=== PATIENT | male | born 1975 | race Caucasian/White ===

== ENCOUNTER 2020-09-02 00:50 | Emergency (ER) | payer MEDICAID, SELFPAY ==
--- NOTE | ~2020-09-02 | XR_ITS ---
EXAMINATION: XR CHEST CLINICAL INFORMATION: Asthma. Dyspnea. COMPARISON: 08/22/2019 TECHNIQUE: Frontal view of the chest was obtained. FINDINGS: The lungs are well expanded. There is no focal consolidation, edema, or effusion. No pneumothorax. The cardiomediastinal silhouette is within normal limits. No acute osseous abnormality. XR/XR chest 1V IMPRESSION: No acute pulmonary finding.
--- NOTE | ~2020-09-02 | XR_ITS ---
EXAMINATION: XR LUMBOSACRAL SPINE CLINICAL INFORMATION: Fall. Lumbar pain. COMPARISON: 11/20/2018 TECHNIQUE: Three views of the lumbosacral spine. FINDINGS: No fracture or subluxation. Vertebral body height and alignment is maintained. Mild disc space narrowing of L4-L5. Small endplate osteophytes at the lower lumbar spine with mild facet arthropathy. The sacroiliac joints are symmetric. The visualized sacrum is intact. The bowel gas pattern is nonobstructive with moderate colonic stool burden. XR/XR lumbar spine 2-3V IMPRESSION: No acute abnormality. Mild multilevel degenerative changes of the spine. Prominent stool in the colon.
[2020-09-02 00:52] VITALS: BP 155/62; PULSE 84; RESP 20; TEMP 36.5; O2SAT 92; BMI 39.0
--- NOTE | 2020-09-02 01:11 | ECG_ITS ---
Test Reason : SOB Blood Pressure : / mmHG Vent. Rate : 094 BPM Atrial Rate : 094 BPM P-R Int : 166 ms QRS Dur : 098 ms QT Int : 362 ms P-R-T Axes : 076 070 049 degrees QTc Int : 452 ms Normal sinus rhythm Normal ECG When compared with ECG of 20-JAN-2019 02:45, No significant change was found Referred By: Caprice Brown Electronically Signed By:PAOLA ARREDONDO
--- NOTE | 2020-09-02 01:13 | ED.GENADULT ---
HPI - General Adult General Chief complaint: General Medical Stated complaint: Back pain/Leg swelling Time Seen by Provider: 09/02/20 01:04 Source: patient Mode of arrival: ambulatory Limitations: no limitations History of Present Illness HPI narrative: Patient comes emergency room complaining of lumbar and right-sided back pain. Patient states that 2 days ago he was walking and slipped on a wet floor. Patient was able to get up but has been hurting since then. Patient states the pain is localized, nonradiating. Patient denies urinary/fecal incontinence/retention. No fever or chills. Patient also complaining of lower extremity edema, states it has been ongoing for couple of months. Patient denies taking any medications for lower extremity edema. Also, patient complaining of wheezing. Patient states he ran out of albuterol 2 days ago. Patient is known to have asthma, denies history of COPD Related Data Previous Rx's Medication Instructions Recorded acetaminophen [Tylenol 8 Hour] 650 mg PO Q8H PRN #10 tab 09/02/20 albuterol sulfate 2 puff INHALATION Q4-6H PRN #8.5 g 09/02/20 cyclobenzaprine 10 mg PO TID PRN #10 tab 09/02/20 prednisone 50 mg PO DAILY #5 tab 09/02/20 Allergies Allergy/AdvReac Type Severity Reaction Status Date / Time No Known Allergies Allergy Verified 09/02/20 00:58 Review of Systems Review of Systems: Constitutional : No Weight loss, No Fever, No Chills, No Night Sweats, No Fatigue, No Malaise ENT/Mouth : No Hearing loss, No Ear Pain, No Nasal Congestion, No Sinus Pain, No Hoarseness, No sore throat, No Rhinorrhea, No Swallowing Difficulty Eyes: No Eye Pain, No Swelling, No Redness, No Foreign Body, No Discharge, No Vision Changes Cardiovascular : No Chest Pain, No SOB, No Dyspnea on Exertion, No Orthopnea, complaining of lower extremity edema No Palpitations Respiratory : No Cough, No Sputum, complaining of Wheezing, No Smoke Exposure Gastrointestinal : No Nausea, No Vomiting, No Diarrhea, No Constipation, No abdominal Pain, No Hematochezia, No Melena Genitourinary : no irregular bleeding, No Dysuria, No Urinary Frequency, No Hematuria, No Urinary Incontinence, No Urgency, No Flank Pain, No Urinary Flow Changes, No Hesitancy Musculoskeletal : Complaining of back pain, lumbar and right lower back. No Joint Swelling Skin : No Skin Lesions, No rash Neuro : No Weakness, No Numbness, No Paresthesias, No Loss of Consciousness, No Dizziness, No Headache Psych : No Anxiety/Panic, No Depression, No SI/HI/AH/VH, No Social Issues, Heme/Lymph: No Bruising, No Bleeding,No Lymphadenopathy Endocrine : No Polyuria, No Polydipsia, No Temperature Intolerance [facility] Past Medical History Medical History Ambulates with cane Arthritis Asthma Depression Social History Social History Alcohol intake: unknown Patient Tobacco Use Status: Current everyday Tobacco user Smoked in Last 30 Days: Yes Use of substances other than those prescribed or required for medical reasons: Yes Substance Use Type: Crack/Cocaine and Heroin Substance Use Frequency: Chronic Longstanding Last Used Substance: Just Prior to Admission Any prior treatment program specific to substance use: Yes Advance Directives: No Advance Directives Information Provided: No Physical Exam Vital Signs: Vital Signs: Last Vital Signs Temp 97.7 F 09/02/20 00:52 Pulse 97 09/02/20 04:32 Resp 10 L 09/02/20 04:32 BP 145/85 H 09/02/20 04:32 Pulse Ox 94 09/02/20 04:32 Body Mass Index 39.0 Appearance: Alert. Oriented X3. No acute distress. Eyes: Pupils equal, round and reactive to light. ENT: Pharynx normal. Neck: Normal inspection. Neck supple. No lymph nodes noted. No crepitus CVS: Normal heart rate and rhythm. Pulses normal. Normal S1 and S2 Respiratory: No respiratory distress. Bilateral wheezing, no rales Abdomen: Soft and nontender. No rigidity. No distention. Back: Pain to palpation over lumbar area and lower right-sided back Skin: Skin warm and dry. Normal skin color. Normal skin turgor. Extremities: Bilateral lower extremity edema, +2. No Lacerations. No Rash Neuro: Oriented X 3. No motor deficit. No sensory deficit. Moving all extermities. No slurred speech. Course Course Course Narrative: It was noted that patient's oxygen saturation dropped to 88% on room air. Patient was given a nebulization treatment. Patient received 2 hour long albuterol treatment. Solu-Medrol, magnesium. Patient is still wheezing. Oxygen saturation is 96% on room air. I discussed with the patient that given that he still wheezing quite a bit, I recommend admission. Patient states that he feels well and does not want to stay in the hospital. Patient's oxygen saturation remained between 94 and 95% while walking. Patient denies chest pain or shortness of breath. Patient would like to home. Medical Decision Making Lab Data Result diagrams: 09/02/20 01:53 09/02/20 01:53 Labs: Lab Results 09/02/20 09/02/20 09/02/20 Range/Units 01:53 01:53 01:53 WBC 8.3 (4.8-10.8) X10*3/uL RBC 4.97 (4.60-5.80) X10*6/uL Hgb 13.9 L (14.0-18.0) g/dl Hct 42.4 (42-52) % MCV 85.3 (80-98) fL MCH 28.0 (27.0-33.0) pg MCHC 32.8 (31.0-36.0) g/dl RDW 12.9 (11.0-16.0) % Plt Count 254 (160-400) X10*3/uL MPV 10.3 (9.4-12.4) fL Immature Gran % (Auto) 0.1 (0.0-0.4) % Neut % (Auto) 59.3 (45-73) % Lymph % (Auto) 22.6 (20-40) % [place] % (Auto) 7.7 (2-11) % Eos % (Auto) 9.6 H (0-4) % Baso % (Auto) 0.7 (0-2) % Lymph # (Auto) 1.9 (1.2-4.9) X10*3/uL [place] # (Auto) 0.6 (0.1-1.2) X10*3/uL Eos # (Auto) 0.8 H (0.0-0.4) X10*3/uL Baso # (Auto) 0.1 (0.0-0.2) X10*3/uL Abs Immat Gran (auto) 0.01 (0.00-0.03) X10*3/uL Absolute Neuts (auto) 4.9 (2.0-8.3) X10*3/uL Absolute Nucleated RBC 0.000 (0.0-0.012) X10*3/uL Nucleated RBC % (auto) 0.0 (0.0-0.2) /100WBC Sodium 141 (135-145) mmol/L Potassium 3.5 (3.3-5.1) mmol/L Chloride 104 (96-108) mmol/L Carbon Dioxide 28 (22-29) mmol/L Anion Gap 13 (12-20) BUN 16 (9-16) mg/dL Creatinine 0.86 (0.5-1.4) mg/dL Estim Creat Clear Calc 99.5 Estimated GFR > 60 Random Glucose 98 (60-115) mg/dL Calcium 9.0 (8.4-10.2) mg/dL Total Bilirubin 0.2 (0.0-1.0) mg/dL Direct Bilirubin < 0.2 (0.0-0.5) mg/dL AST 27 (5-37) U/L ALT 26 (0-40) U/L Alkaline Phosphatase 91 (39-117) U/L B-Natriuretic Peptide < 10 (<100) pg/mL Total Protein 6.9 (6.5-8.0) g/dL Albumin 4.0 (3.5-5.0) g/dL Imaging Data Lumbar spine x-ray: Radiologist's impression: No fracture or subluxation. Vertebral body height and alignment is maintained. Mild disc space narrowing of L4-L5. Small endplate osteophytes at the lower lumbar spine with mild facet arthropathy. The sacroiliac joints are symmetric. The visualized sacrum is intact. The bowel gas pattern is nonobstructive with moderate colonic stool burden. XR/XR lumbar spine 2-3V IMPRESSION: No acute abnormality. Mild multilevel degenerative changes of the spine. Prominent stool in the colon. Chest x-ray: Radiologist's impression: The lungs are well expanded. There is no focal consolidation, edema, or effusion. No pneumothorax. The cardiomediastinal silhouette is within normal limits. No acute osseous abnormality. XR/XR chest 1V IMPRESSION: No acute pulmonary finding. ECG Data Attestation: I personally reviewed and interpreted this ECG as follows: (Sinus rhythm, heart rate 94, no ST segment depression or elevation, nonspecific T-wave inversion in lead 3, QTC 452) Critical Care Time Critical Care Time Total Critical Care Time: 60 Discharge Plan Discharge Clinical Impression: Back pain, lumbosacral, Bilateral lower extremity edema Asthma Qualifiers: Asthma severity: unspecified severity Asthma persistence: unspecified Asthma complication type: unspecified Qualified Code(s): J45.909 - Unspecified asthma, uncomplicated Patient Disposition: Home, Self-Care Instructions: Asthma (ED), Acute Low Back Pain (ED) Additional Instructions: Please follow-up with your primary care physician tomorrow. If you have any worsening or new symptoms, please return to the emergency room or call 911 Prescriptions: New albuterol sulfate 90 mcg/actuation HFA aerosol inhaler 2 puff inhalation Q4-6H PRN (Reason: shortness of breath or wheezing) Qty: 8.5 RF: 0 prednisone 50 mg tablet 50 mg PO DAILY Qty: 5 RF: 0 acetaminophen [Tylenol 8 Hour] 650 mg tablet extended release 650 mg PO Q8H PRN (Reason: pain) Qty: 10 RF: 0 cyclobenzaprine 10 mg tablet 10 mg PO TID PRN (Reason: muscle spasm) Qty: 10 RF: 0
[2020-09-02 01:30] VITALS: PULSE 93; O2SAT 93
[2020-09-02] MEDS: Albuterol Sulfate (0.083%) 2.5 MG/3 ML VIAL.NEB 10 MG INHALE ×2 (01:34→02:54)
[2020-09-02] MEDS: methylPREDNISolone Sod Succ 125 MG/2 ML VIAL IVPUSH (01:59)
[2020-09-02 02:00] VITALS: BP 133/76; PULSE 86; RESP 15; O2SAT 98
[2020-09-02 02:03] LABS: Basophils Absolute Auto 0.1 X10*3/uL (0.0-0.2); Basophils Percent Auto 0.7 % (0-2); Eosinophils Absolute Auto 0.8 X10*3/uL (0.0-0.4); Eosinophils Percent Auto 9.6 % (0-4); Hematocrit 42.4 % (42-52); Hemoglobin 13.9 g/dl (14.0-18.0); Imm Gran Abs Auto 0.01 X10*3/uL (0.00-0.03); Imm Gran Pct Auto 0.1 % (0.0-0.4); Lymphocytes Absolute Auto 1.9 X10*3/uL (1.2-4.9); Lymphocytes Percent Auto 22.6 % (20-40); MANUAL DIFF FLAG NO; Mean Corpuscular HGB Conc 32.8 g/dl (31.0-36.0); Mean Corpuscular Volume 85.3 fL (80-98); Mean Platelet Volume 10.3 fL (9.4-12.4); Monocytes Absolute Auto 0.6 X10*3/uL (0.1-1.2); Monocytes Percent Auto 7.7 % (2-11); Neutrophils Absolute Auto 4.9 X10*3/uL (2.0-8.3); Neutrophils Percent Auto 59.3 % (45-73); Platelet Count 254 X10*3/uL (160-400); Red Blood Count 4.97 X10*6/uL (4.60-5.80); Red Cell Distribution Width 12.9 % (11.0-16.0); White Blood Count 8.3 X10*3/uL (4.8-10.8)
[2020-09-02] MEDS: Magnesium Sulfate/H2O 2 GM/50 ML PIGGYBACK IV (02:13)
[2020-09-02 02:33] LABS: Alanine Aminotransferase 26 U/L (0-40); Alkaline Phosphatase 91 U/L (39-117); Anion Gap 13 (12-20); Aspartate Amino Transferase 27 U/L (5-37); Bilirubin Direct < 0.2 mg/dL (0.0-0.5); Bilirubin Total 0.2 mg/dL (0.0-1.0); Blood Urea Nitrogen 16 mg/dL (9-16); Carbon Dioxide 28 mmol/L (22-29); Chloride 104 mmol/L (96-108); Creatinine Clr Calc Pharmacy 99.5; Estimated Glomerular Filt Rate > 60; Glucose Random 98 mg/dL (60-115); Potassium 3.5 mmol/L (3.3-5.1); Sodium 141 mmol/L (135-145); Total Protein 6.9 g/dL (6.5-8.0)
[2020-09-02 02:36] LABS: B Type Natriuretic Peptide < 10 pg/mL (<100)
[2020-09-02 02:54] VITALS: PULSE 72; O2SAT 92
[2020-09-02 04:00] VITALS: PULSE 90; RESP 14; O2SAT 96
[2020-09-02 04:32] VITALS: BP 145/85; PULSE 97; RESP 10; O2SAT 94
== END 2020-09-02 05:06 | disposition home or self-care (01) ==
PROVIDERS: Emergency Provider Emergency Medicine
DX: R60.0 Localized edema (principal); J45.909 Unspecified asthma, uncomplicated; M54.5 Low back pain; F11.10 Opioid abuse, uncomplicated; Z79.899 Other long term (current) drug therapy; F14.90 Cocaine use, unspecified, uncomplicated; F17.200 Nicotine dependence, unspecified, uncomplicated; Z71.6 Tobacco abuse counseling
CPT/HCPCS: 36415; 71045; 72100; 80048; 80076; 83880; 85025; 93005; 94640; 94644; 94645; 99284; 99291; J2930; J3475

== ENCOUNTER 2020-10-05 06:44 | Inpatient (IN) | payer MEDICAID, SELFPAY ==
[2020-10-05] VITALS (11 sets, daily range): BP systolic 126–165; BP diastolic 63–79; PULSE 85–118; RESP 16–19; TEMP 37–37.2; O2SAT 93–96; BMI 28.8
--- NOTE | ~2020-10-05 | XR_ITS ---
EXAMINATION: XR CHEST CLINICAL INFORMATION: Shortness of breath COMPARISON: 09/02/2020 TECHNIQUE: Frontal view of the chest was obtained. FINDINGS: Subtle infiltration right suprahilar location. No significant abnormality is otherwise noted involving the heart, lungs, mediastinum, bony thorax or soft tissues. XR/XR chest 1V IMPRESSION: Early infiltration right upper lobe. No parapneumonic effusion.
--- NOTE | ~2020-10-05 | CT_ITS ---
EXAMINATION: CT ANGIOGRAM OF THE CHEST WITH AND WITHOUT CONTRAST (CT PULMONARY ANGIOGRAM FOR PE) CLINICAL INFORMATION: Reason for Exam shortness of breath, hypoxia, rule out PE, pneumonia COMPARISON: Chest x-ray from earlier the same day TECHNIQUE: Prior to contrast administration, noncontrast localization images were obtained. Subsequently, multidetector volumetric imaging was performed from the thoracic inlet to below the diaphragms following the administration of 69 mL Omnipaque 350 intravenous contrast. No contrast reaction reported Sagittal, coronal, and MIP oblique sagittal reformatted images were obtained on the CT workstation, uploaded to PACS, and reviewed. This CT examination was performed using dose optimization techniques as appropriate, variously including the following: *Automated exposure control *Adjustment of mA and/or kV according to patient size (this includes techniques or standardized protocols for targeted exams where dose is matched to indication/reason for exam; i.e. extremities or head) *Use of iterative reconstruction technique Total exam dose-length product 397 mGy-cm FINDINGS: QUALITY OF STUDY/CONTRAST BOLUS: Satisfactory. PULMONARY ARTERIES: No central or segmental pulmonary emboli. THORACIC AORTA: No aneurysm or dissection. LUNG: There is evidence of mild emphysema. There are scattered areas of mild bronchial wall thickening. The lungs are otherwise clear. PLEURA: No pleural effusion or pneumothorax. MEDIASTINUM: Normal heart size. No pericardial effusion. There is shotty mediastinal and bilateral hilar lymphadenopathy. No enlarged hilar or mediastinal lymphadenopathy. No evidence of septal bowing or right heart strain. CHEST WALL/AXILLA: No axillary or internal mammary lymphadenopathy. OSSEOUS STRUCTURES: No acute or suspicious osseous abnormality. UPPER ABDOMEN: Unremarkable. No reflux of contrast into the hepatic veins to suggest elevated right heart pressures. CT/CT angio chest PE protocol IMPRESSION: No evidence of pulmonary embolism. Mild emphysema. Scattered areas of mild bronchial wall thickening. No evidence of pneumonia seen. VTE: negative
--- NOTE | 2020-10-05 06:50 | ECG_ITS ---
Test Reason : SOB Blood Pressure : / mmHG Vent. Rate : 098 BPM Atrial Rate : 098 BPM P-R Int : 156 ms QRS Dur : 098 ms QT Int : 352 ms P-R-T Axes : 069 066 046 degrees QTc Int : 449 ms Normal sinus rhythm Normal ECG No previous ECGs available Referred By: Mary Lou Flor Electronically Signed By:CUONG CASTELLON MD
[2020-10-05] MEDS: Albuterol Sulfate (0.083%) 2.5 MG/3 ML VIAL.NEB 10 MG INHALE (07:01)
[2020-10-05] MEDS: methylPREDNISolone Sod Succ 125 MG/2 ML VIAL IVPUSH (07:01)
[2020-10-05] MEDS: Magnesium Sulfate/H2O 2 GM/50 ML PIGGYBACK IV (07:01)
[2020-10-05 07:24] LABS: MANUAL DIFF FLAG NO
[2020-10-05 07:25] LABS: Basophils Absolute Auto 0.1 X10*3/uL (0.0-0.2); Basophils Percent Auto 0.7 % (0-2); Eosinophils Absolute Auto 0.6 X10*3/uL (0.0-0.4); Eosinophils Percent Auto 5.8 % (0-4); Hematocrit 41.9 % (42-52); Hemoglobin 13.5 g/dl (14.0-18.0); Imm Gran Abs Auto 0.01 X10*3/uL (0.00-0.03); Imm Gran Pct Auto 0.1 % (0.0-0.4); Lymphocytes Absolute Auto 1.9 X10*3/uL (1.2-4.9); Lymphocytes Percent Auto 18.3 % (20-40); Mean Corpuscular HGB Conc 32.2 g/dl (31.0-36.0); Mean Corpuscular Hemoglobin 27.4 pg (27.0-33.0); Mean Corpuscular Volume 85.2 fL (80-98); Monocytes Absolute Auto 0.9 X10*3/uL (0.1-1.2); Monocytes Percent Auto 8.2 % (2-11); Neutrophils Percent Auto 66.9 % (45-73); Platelet Count 251 X10*3/uL (160-400); Red Blood Count 4.92 X10*6/uL (4.60-5.80); Red Cell Distribution Width 13.5 % (11.0-16.0); White Blood Count 10.5 X10*3/uL (4.8-10.8)
[2020-10-05 08:01] LABS: Alanine Aminotransferase 14 U/L (0-40); Albumin Level 3.9 g/dL (3.5-5.0); Alkaline Phosphatase 90 U/L (39-117); Anion Gap 10 (12-20); Aspartate Amino Transferase 16 U/L (5-37); Bilirubin Total 0.4 mg/dL (0.0-1.0); Blood Urea Nitrogen 17 mg/dL (9-16); Calcium 8.9 mg/dL (8.4-10.2); Carbon Dioxide 28 mmol/L (22-29); Chloride 107 mmol/L (96-108); Creatinine Clr Calc Pharmacy 119.6; Estimated Glomerular Filt Rate > 60; Glucose Random 111 mg/dL (60-115); Potassium 3.6 mmol/L (3.3-5.1); Sodium 141 mmol/L (135-145); Total Protein 6.4 g/dL (6.5-8.0)
--- NOTE | 2020-10-05 09:06 | ED.ASTHMA ---
HPI - Asthma General Chief Complaint: Asthma Stated Complaint: asthma Time Seen by Provider: 10/05/20 06:50 Source: patient Mode of arrival: ambulatory Limitations: no limitations History of Present Illness HPI Narrative: 45-year-old male who presents emergency department for evaluation of shortness of breath, productive cough and asthma exacerbation. The patient states that he has been short of breath since yesterday. He states that he has also had a cough which is productive of green, thick sputum. He had occasional chills but no fever. He states that he has been feeling weak and fatigued. The patient does have a history of asthma and he states that he was using his albuterol inhaler every 2 hours with only minimal relief of his shortness of breath. The patient does have a history of heroin use disorder. He states that he snorts heroin multiple times a day and uses 10 bags of heroin per day. Patient states that he was intubated in 2006 for an asthma exacerbation. He denied headache, nausea, vomiting, chest pain, abdominal pain, change in his bowel movements. On presentation, the patient appeared to be in moderate respiratory distress, he was tachycardic with a pulse rate of 118, he was hypoxic with an O2 saturation of 88% on room air and this improved to 96% on 4 L. Related Data Previous Rx's Medication Instructions Recorded acetaminophen [Tylenol 8 Hour] 650 mg PO Q8H PRN #10 tab 09/02/20 albuterol sulfate 2 puff INHALATION Q4-6H PRN #8.5 g 09/02/20 cyclobenzaprine 10 mg PO TID PRN #10 tab 09/02/20 prednisone 50 mg PO DAILY #5 tab 09/02/20 Allergies Allergy/AdvReac Type Severity Reaction Status Date / Time No Known Allergies Allergy Verified 09/02/20 00:58 Review of Systems Review of Systems: Yes all other systems are reviewed and are negative [facility] Past Medical History [facility] Narrative: past medical history: Asthma, intubated in 2006, peripheral edema, depression, arthritis. Social history: The patient smokes 1 pack of cigarettes per day times 34 years, denies alcohol use. He states that he uses intranasal heroin multiple times a day, he uses 10 bags a day, he states the last use last night. Medical History Ambulates with cane Arthritis Asthma Depression Social History Social History Alcohol intake: unknown Patient Tobacco Use Status: Current everyday Tobacco user Substance Use Type: Crack/Cocaine and Heroin Advance Directives: No Advance Directives Information Provided: No Physical Exam Vital Signs: Vital Signs: Last Vital Signs Pulse 85 10/05/20 10:27 Resp 18 10/05/20 08:00 BP 126/64 10/05/20 08:00 Pulse Ox 96 10/05/20 08:00 Oxygen Flow Rate 4 10/05/20 06:52 Body Mass Index 28.8 Const: General: cooperative and in distress ( Moderate respiratory distress) Orientation/consciousness: oriented to person and oriented to place Limitations: no limitations HENMT: Head: Yes normal to inspection, Yes normocephalic and Yes atraumatic Ears: external ears normal General nose exam: Normal external nose present Face and sinus: Yes normal facial exam Mouth: Normal oral and palatal mucosa present Throat: Yes posterior oropharynx normal Eyes: Periorbital: periorbital findings normal Eyelids: Yes eyelids normal Conjunctivae: conjunctivae normal Sclerae: sclerae normal Corneas: corneas normal Pupils: Equal, round and reactive pupils present Direct Ophthalmoscopy: normal light reflex Neck: Neck: Yes full ROM, Yes no lymphadenopathy, Yes no meningeal signs, Yes trachea midline and Yes supple Chest: Chest palpation & inspection: normal inspection of the chest and normal palpation of entire chest wall Resp: Effort & Inspection: labored, respiratory distress, tachypneic and uses accessory muscles Auscultation: wheezes expiratory wheezes, inspiratory wheezes and throughout Cardio: Rate: regular rate Rhythm: regular rhythm Heart sounds: S1 normal heart sound present, S2 normal heart sound present and no murmurs GI: Inspection: Yes normal to inspection Palpation (GI): Soft to palpation, nontender, no guarding, not rigid and No hepatosplenomegaly present : General: Yes no CVA tenderness Back/Spine/Pelvis: Back: no CVA tenderness Cervical Spine: normal cervical lordosis Thoracic/Lumbar Spine: thoracic and lumbar spine normal to inspection Skin: Lesions: no lesions Rashes: no rashes Wounds: no wounds Neuro: General: oriented to person, oriented to place and no meningeal signs Cranial nerves: Yes CN's II-XII intact bilaterally and Yes Equal, round and reactive pupils present Cognition (Neuro): normal cognition Motor exam (neuro): 5/5 motor strength present throughout Extrem: General: Yes normal to inspection and Yes full ROM Psych: Appearance: well kempt Mental Status: mental status grossly normal Speech and movement: Normal speech and movement present Affect: normal affect Attitude: cooperative Thought process: Normal thought process present Thought content: Normal thought content present Course Course Course Narrative: 45-year-old male who presents emergency department for evaluation of shortness of breath times 2 days with productive cough, fatigue and weakness. Patient has a history of asthma and has been using his albuterol inhaler every 2 hours with only minimal relief of his symptoms. Vital signs revealed tachycardia and hypoxia. The patient's physical examination revealed that he was in moderate respiratory distress, using accessory muscles to breathe. Lung exam revealed inspiratory and expiratory wheezes throughout all lung solo. Laboratory evaluation was ordered, blood cultures and lactic acid will be obtained. Patient was ordered to get albuterol nebulizer 5 mg over 1 hour, magnesium sulfate 2 g IV and methylprednisolone 125 mg IV. 1000: The patient's lung exam did improve after the initial treatment however he still is wheezing, he also appears to be somnolent which I suspect may be secondary to heroin use. I did order a 2nd albuterol nebulizer 5 mg over 1 hour. Chest x-ray is concerning for right upper lobe early pneumonia. I did take the patient off oxygen and his O2 saturation dropped to 88%, he was placed back on 4 L of oxygen via nasal cannula and I will obtain an ABG. Patient will be treated with ceftriaxone 1 g IV and azithromycin 500 mg IV. I will discuss the patient's presentation with the covering hospitalist. 1110 : Patient is feeling better after his 2nd treatment. ABG did reveal a pH of 7.33, pCO2 of 54 and PO2 of 77 with an O2 saturation of 94% this was done on 4 L via nasal cannula. The patient is retaining CO2 however I do not think that this is secondary to his asthma it may be secondary to his lethargy. I will discuss this with the hospitalist. MDM - Asthma Lab Data Result diagrams: 10/05/20 07:18 10/05/20 07:18 Labs: Lab Results 10/05/20 10/05/20 10/05/20 Range/Units 07:18 07:18 09:53 WBC 10.5 (4.8-10.8) X10*3/uL RBC 4.92 (4.60-5.80) X10*6/uL Hgb 13.5 L (14.0-18.0) g/dl Hct 41.9 L (42-52) % MCV 85.2 (80-98) fL MCH 27.4 (27.0-33.0) pg MCHC 32.2 (31.0-36.0) g/dl RDW 13.5 (11.0-16.0) % Plt Count 251 (160-400) X10*3/uL MPV 10.0 (9.4-12.4) fL Immature Gran % (Auto) 0.1 (0.0-0.4) % Neut % (Auto) 66.9 (45-73) % Lymph % (Auto) 18.3 L (20-40) % [place] % (Auto) 8.2 (2-11) % Eos % (Auto) 5.8 H (0-4) % Baso % (Auto) 0.7 (0-2) % Lymph # (Auto) 1.9 (1.2-4.9) X10*3/uL [place] # (Auto) 0.9 (0.1-1.2) X10*3/uL Eos # (Auto) 0.6 H (0.0-0.4) X10*3/uL Baso # (Auto) 0.1 (0.0-0.2) X10*3/uL Abs Immat Gran (auto) 0.01 (0.00-0.03) X10*3/uL Absolute Neuts (auto) 7.0 (2.0-8.3) X10*3/uL Absolute Nucleated RBC 0.000 (0.0-0.012) X10*3/uL Nucleated RBC % (auto) 0.0 (0.0-0.2) /100WBC O2 Saturation % ABG pH at Pt Temp (7.35-7.45) ABG pH (Temp Correct) (7.35-7.45) ABG pCO2 at Pt Temp (32-45) mmHg ABG pCO2 (Temp Corrct (32-45) mmHg ABG pO2 at Pt Temp (83-108) mmHg ABG pO2 (Temp Correct (83-108) ABG HCO3 (22-26) mmol/L ABG Base Excess (Actual) mmol/L Sodium 141 (135-145) mmol/L Potassium 3.6 (3.3-5.1) mmol/L Chloride 107 (96-108) mmol/L Carbon Dioxide 28 (22-29) mmol/L Anion Gap 10 L (12-20) BUN 17 H (9-16) mg/dL Creatinine 0.84 (0.5-1.4) mg/dL Estim Creat Clear Calc 119.6 Estimated GFR > 60 Random Glucose 111 (60-115) mg/dL Lactic Acid 0.9 (0.5-2.0) mmol/L Calcium 8.9 (8.4-10.2) mg/dL Total Bilirubin 0.4 (0.0-1.0) mg/dL AST 16 D (5-37) U/L ALT 14 (0-40) U/L Alkaline Phosphatase 90 (39-117) U/L Total Protein 6.4 L (6.5-8.0) g/dL Albumin 3.9 (3.5-5.0) g/dL Urine Color Urine Appearance Urine pH (5.0-8.0) Ur Specific [place] (1.005-1.025) Urine Protein (NEG-TRACE) MG/DL Urine Glucose (UA) (NEG) MG/DL Urine Ketones (NEG) MG/DL Urine Blood (NEG) Urine Nitrite (NEG) Ur Leukocyte Esterase (NEG) Urine Opiates Screen (Not Detect) Ur Barbiturates Screen (Not Detect) Ur Phencyclidine Scrn (Not Detect) Ur Amphetamines Screen (Not Detect) U Benzodiazepines Scrn (Not Detect) Urine Cocaine Screen (Not Detect) U Marijuana (THC) Screen (Not Detect) 10/05/20 10/05/20 10/05/20 Range/Units 09:58 10:04 10:05 WBC (4.8-10.8) X10*3/uL RBC (4.60-5.80) X10*6/uL Hgb (14.0-18.0) g/dl Hct (42-52) % MCV (80-98) fL MCH (27.0-33.0) pg MCHC (31.0-36.0) g/dl RDW (11.0-16.0) % Plt Count (160-400) X10*3/uL MPV (9.4-12.4) fL Immature Gran % (Auto) (0.0-0.4) % Neut % (Auto) (45-73) % Lymph % (Auto) (20-40) % [place] % (Auto) (2-11) % Eos % (Auto) (0-4) % Baso % (Auto) (0-2) % Lymph # (Auto) (1.2-4.9) X10*3/uL [place] # (Auto) (0.1-1.2) X10*3/uL Eos # (Auto) (0.0-0.4) X10*3/uL Baso # (Auto) (0.0-0.2) X10*3/uL Abs Immat Gran (auto) (0.00-0.03) X10*3/uL Absolute Neuts (auto) (2.0-8.3) X10*3/uL Absolute Nucleated RBC (0.0-0.012) X10*3/uL Nucleated RBC % (auto) (0.0-0.2) /100WBC O2 Saturation 94.0 % ABG pH at Pt Temp 7.34 L (7.35-7.45) ABG pH (Temp Correct) 7.35 (7.35-7.45) ABG pCO2 at Pt Temp 55 H (32-45) mmHg ABG pCO2 (Temp Corrct 53 H (32-45) mmHg ABG pO2 at Pt Temp 77 L (83-108) mmHg ABG pO2 (Temp Correct 74 L (83-108) ABG HCO3 29 H (22-26) mmol/L ABG Base Excess (Actual) 2.7 mmol/L Sodium (135-145) mmol/L Potassium (3.3-5.1) mmol/L Chloride (96-108) mmol/L Carbon Dioxide (22-29) mmol/L Anion Gap (12-20) BUN (9-16) mg/dL Creatinine (0.5-1.4) mg/dL Estim Creat Clear Calc Estimated GFR Random Glucose (60-115) mg/dL Lactic Acid (0.5-2.0) mmol/L Calcium (8.4-10.2) mg/dL Total Bilirubin (0.0-1.0) mg/dL AST (5-37) U/L ALT (0-40) U/L Alkaline Phosphatase (39-117) U/L Total Protein (6.5-8.0) g/dL Albumin (3.5-5.0) g/dL Urine Color YELLOW Urine Appearance CLEAR Urine pH 6.0 (5.0-8.0) Ur Specific [place] >= 1.030 H (1.005-1.025) Urine Protein TRACE (NEG-TRACE) MG/DL Urine Glucose (UA) NEG (NEG) MG/DL Urine Ketones 5 (NEG) MG/DL Urine Blood NEG (NEG) Urine Nitrite NEG (NEG) Ur Leukocyte Esterase NEG (NEG) Urine Opiates Screen POSITIVE H (Not Detect) Ur Barbiturates Screen Not Detected (Not Detect) Ur Phencyclidine Scrn Not Detected (Not Detect) Ur Amphetamines Screen Not Detected (Not Detect) U Benzodiazepines Scrn Not Detected (Not Detect) Urine Cocaine Screen POSITIVE H (Not Detect) U Marijuana (THC) Screen Not Detected (Not Detect) Discharge Plan Discharge Clinical Impression: Hypoxia, Heroin use disorder, moderate, dependence Pneumonia Qualifiers: Pneumonia type: due to unspecified organism Laterality: right Lung location: upper lobe of lung Qualified Code(s): J18.9 - Pneumonia, unspecified organism Asthma exacerbation Qualifiers: Asthma severity: severe Asthma persistence: persistent Qualified Code(s): J45.51 - Severe persistent asthma with (acute) exacerbation Patient Disposition: Admitted As Inpatient
[2020-10-05 10:05] LABS: ABG Base Excess 2.7 mmol/L; ABG HCO3 29 mmol/L (22-26); ABG pCO2 55 mmHg (32-45); ABG pCO2 TC 53 mmHg (32-45); ABG pH 7.34 (7.35-7.45); ABG pH TC 7.35 (7.35-7.45); ABG pO2 77 mmHg (83-108); ABG pO2 TC 74 (83-108)
[2020-10-05 10:10] LABS: ABG Refer to POC result
[2020-10-05 10:14] LABS: Lactic Acid 0.9 mmol/L (0.5-2.0)
[2020-10-05 10:15] LABS: Glucose Urine UA NEG (NEG); Leukocyte Esterase Urine NEG (NEG); Nitrite Urine NEG (NEG); Specific Gravity - Urine >= 1.030 (1.005-1.025); Urine Blood NEG (NEG); Urine Ketones 5 MG/DL (NEG); Urine Protein TRACE MG/DL (NEG-TRACE)
[2020-10-05] MEDS: cefTRIAXone sodium 1 GM in 0.9 % Sodium Chloride 50 ML IV (10:23)
[2020-10-05] MEDS: Albuterol Sulfate (0.083%) 2.5 MG/3 ML VIAL.NEB 5 MG INHALE (10:23)
[2020-10-05 10:32] LABS: Appearance Urine CLEAR; Color Urine YELLOW
[2020-10-05 11:00] LABS: Amphetamine Screen Urine Not Detected (Not Detect); Barbiturates, Urine Not Detected (Not Detect); Benzodiazepines Screen Urine Not Detected (Not Detect); Cannabinoid Screen Urine Not Detected (Not Detect); Cocaine Screen Urine POSITIVE (Not Detect); Opiate Screen Urine POSITIVE (Not Detect); Phencyclidine Screen Urine Not Detected (Not Detect)
[2020-10-05] MEDS: Naloxone HCl 0.4 MG/ML VIAL 0.2 MG IVPUSH (11:46)
[2020-10-05] MEDS: 0.9 % Sodium Chloride 1,000 ML 999 ML IV (11:46)
[2020-10-05] MEDS: Azithromycin 500 MG in 0.9 % Sodium Chloride 250 ML 125 MG IV (11:46)
--- NOTE | 2020-10-05 11:50 | PC.NURSE ---
Administered 0.2mg narcan IV to patient at 1146 per MD order because patient was becoming more lethargic, only staying awake for moments at a time before falling asleep again. Following administration of narcan patient extremely agitated. MD Yuen at bedside to explain why narcan was given to patient.
[2020-10-05] MEDS: Morphine Sulfate 4 MG/ML CARTRIDGE IVPUSH (12:01)
--- NOTE | 2020-10-05 12:06 | W.PM.CCCN ---
History of Present Illness Data of Consult Service Date: 10/05/20 Requesting physician: Isaak Linares Primary Care Provider: [facility] HPI I was asked by Dr. Linares to see Mr. Mcfadden because of somnolence, hypercarbia, and hypoxemia. The patient is a 45-year-old male w PMHx of asthma, depression, and arthritis. The patient reported that he was intubated in 2006 for an asthma exacerbation. He ambulates with a cane. He also has a history of heroin use disorder. The patient reported that he snorts heroin multiple times a day, using 10 bags of heroin per day. He smokes 1 pack per day times 37 years. The patient presented ambulatory to the emergency department about 7am this morning for evaluation of shortness of breath, productive cough and asthma exacerbation. The patient stated that he has been short of breath since yesterday, and had a cough productive of green, thick sputum. He had occasional chills but no fever. He states that he has been feeling weak and fatigued. He was using his albuterol inhaler every 2 hours with only minimal relief of his shortness of breath. On presentation to the ED, the patient appeared to be in moderate respiratory distress. He was tachycardic with a pulse rate of 118, Sat was 88% on room air and this improved to 96% on 4 L. Breathing was labored, tachypneic, using accessory muscles. He had inspiratory and expiratory wheezes throughout. Labs in the ED were notable for normal white count, normal bicarb, BUN and creatinine 17/0.8, normal LFTs, lactic acid 0.9. The patient was given a 5 mg albuterol neb, magnesium, and Solu-Medrol. The patient's lung exam did improved. He also appeared to be somnolent, which was thought secondary to heroin use. The patient was given a 2nd albuterol nebulizer. Chest x-ray was read as showing a possible early right upper lobe infiltrate. When his oxygen was taken off, the sat dropped to 88%. Therefore an arterial blood gas was obtained at about 10am on 4 L nasal cannula, which showed 7.34/55/77/+2. The patient was given ceftriaxone 1 g and azithromycin 500 mg. The patient's situation was discussed with Dr. Linares, who called me because of the patient's lethargy and hypercarbia. I went to see the patient in the ED. On my exam, he is definitely somnolent, falling asleep during my exam. He is well developed and well nourished. He looks quite healthy and nontoxic. He is breathing easy with no accessory muscle use; in fact he is a little bradypneic, with unstimulated respiratory less than 10. PER, about 2-3mm. His chest looks grossly hyperinflated. When asked to take a deep breath, he definitely has marked inspiratory and expiratory wheezes, with a mildly prolonged expiratory phase. No JVD and no edema. My reading of his CXR shows a diffuse interstitial process. His pulmonary parenchyma is definitely not normal. If he has a RUL infiltrate, it?s subtle (I wouldn?t have read it). IMPRESSION: 1. Asthma exacerbation with hyperinflation. In addition to BDs and steroids, I would put him on CPAP for a little while to see if you can deflate his chest. (CPAP for the treatment of acute asthma is not rescue therapy, it?s acute treatment, the same as bronchodilators or steroids. CPAP is the specific antidote for all kinds of airway obstruction.) 2. Somnolence. His somnolence is not secondary to CO2 retention. He just looks sleepy, which in his case, would seem to be most likely secondary to heroin use. I would try a dose of Narcan. 3. Hypoxemia. His chest x-ray is definitely not normal, and looks to me like he has diffuse interstitial infiltrates. I would suggest a noncontrast CT scan to further define what?s going on. It?s certainly possible that he has a heroin induced interstitial pneumonitis. 4. As an aside, it should be asked why this patient is using heroin. It may very well be for pain control (sometimes a not entirely meritless stratagem). If so, it might be advisable to introduce him to less harmful alternatives. Discussed with Dr. Yuen and Dr. Linares. Time: 50 min. [facility] Past Medical History Medical History Ambulates with cane Arthritis Asthma Depression Social History Social History Alcohol intake: unknown Patient Tobacco Use Status: Current everyday Tobacco user Substance Use Type: Crack/Cocaine and Heroin Advance Directives: No Advance Directives Information Provided: No Meds Allergies Allergy/AdvReac Type Severity Reaction Status Date / Time No Known Allergies Allergy Verified 09/02/20 00:58 Active Medications: Current Medications Generic Name Dose Route Start Last Admin Trade Name Danuta PRN Reason Stop Dose Admin Sodium Chloride 1,000 mls @ 999 mls/hr 10/05/20 11:39 10/05/20 11:46 Ns IV 10/05/20 12:39 999 mls/hr .Q1H1M STA Administration Physical Exam Vital Signs: Vital Signs: Last Vital Signs Pulse 96 10/05/20 11:27 Resp 18 10/05/20 11:27 BP 130/75 10/05/20 11:27 Pulse Ox 94 10/05/20 11:27 Oxygen Flow Rate 4 10/05/20 06:52 Body Mass Index 28.8 Results Labs CBC & Chem 7: 10/05/20 07:18 10/05/20 07:18 Labs: Short CBC 10/05/20 Range/Units 07:18 WBC 10.5 (4.8-10.8) X10*3/uL Hgb 13.5 L (14.0-18.0) g/dl Hct 41.9 L (42-52) % Plt Count 251 (160-400) X10*3/uL BMP 10/05/20 07:18 Sodium 141 Potassium 3.6 Chloride 107 Carbon Dioxide 28 BUN 17 H Creatinine 0.84 Calcium 8.9 Liver Function 10/05/20 Range/Units 07:18 Total Bilirubin 0.4 (0.0-1.0) mg/dL AST 16 D (5-37) U/L ALT 14 (0-40) U/L Alkaline Phosphatase 90 (39-117) U/L Albumin 3.9 (3.5-5.0) g/dL Urine 10/05/20 Range/Units 10:05 Urine Color YELLOW Urine Appearance CLEAR Urine pH 6.0 (5.0-8.0) Ur Specific [place] >= 1.030 H (1.005-1.025) Urine Protein TRACE (NEG-TRACE) MG/DL Urine Glucose (UA) NEG (NEG) MG/DL
--- NOTE | 2020-10-05 12:59 | PC.NURSE ---
This RN called to bedside, pt IV removed. Bandage placed, primary rn aware
--- NOTE | 2020-10-05 13:44 | P.HPHOSP_ITS ---
History of Present Illness Date of Service: 10/05/20 Chief Complaint: trouble breathing This is a 45-year-old male with a past medical history of asthma only on rescue inhalers, anxiety/depression, polysubstance abuse including daily crack/cocaine smoking and snorting heroin, tobacco use who presents to the hospital with complaints of shortness of breath over the last 2 days prior to arrival. He reports that he tried using his rescue inhaler but it did not help much so he presented to the emergency room. He does endorse daily crack smoking and snorting heroin with last use of his heroin around 04:00 on the day of admission. Besides shortness of breath he endorses wheezing and a nonproductive cough. He denies any fevers or chills. Denies being around anybody with similar symptoms. He reports that he received his more day and a vaccine about 2-3 months ago when he was incarcerated. He denies IV substance abuse. He endorses that he was intubated for asthma in 2006. Patients is bedside, who corroborates the details Upon arrival to the emergency room he was noted to be in respiratory distress with tachypnea and diffuse wheezing. He was treated with bronchodilators, IV magnesium, systemic steroids. His chest x-ray revealed a suprahilar infiltrate. He had cultures drawn and was given empiric IV ceftriaxone and azithromycin. His condition continue to deteriorate, becoming more somnolent. A blood gas was checked which showed a normal pH, however pCO2 was elevated to the mid 50s And his PO2 was in the 70s on 4 L. he was given a small dose of IV Narcan with improvement in his somnolence. He remained with respiratory distress and subsequently admission was requested. Review of Systems Review of Systems: General - denies fevers or chills, +fatigue HEENT -denies blurred vision, denies headache, denies sore throat Cardiovascular - denies chest pain or palpitations, denies edema Respiratory - +cough, shortness of breath, wheezing Gastrointestinal - denies abdominal pain, nausea, vomiting, diarrhea - denies flank pain, denies dysuria, denies frequency or urgency Musculoskeletal - denies back pain, denies hip pain, denies knee pain, denies shoulder pain Neurological - denies any focal weakness or numbness Skin, denies any bruising or redness Psychiatric - denies any suicidal ideation, hallucinations, homicidal ideation Endocrinology - denies intolerance to hot / cold temperatures [facility] Medical History Ambulates with cane Arthritis Asthma Depression Family History (Updated 10/05/20 @ 13:52 by Isaak Linares MD) Other Breast CA CAD (coronary artery disease) Social History Alcohol intake: unknown Patient Tobacco Use Status: Current everyday Tobacco user Substance Use Type: Crack/Cocaine and Heroin Advance Directives: No Advance Directives Information Provided: No Meds Allergies Allergy/AdvReac Type Severity Reaction Status Date / Time No Known Allergies Allergy Verified 09/02/20 00:58 Home Medications Medication Instructions Recorded Confirmed Last Taken Type No Known Home Meds 10/05/20 10/05/20 Unknown History Physical Exam Vital Signs and Narrative: Vital Signs: Last Vital Signs Pulse 96 10/05/20 11:27 Resp 18 10/05/20 11:27 BP 130/75 10/05/20 11:27 Pulse Ox 94 10/05/20 11:27 Oxygen Flow Rate 4 10/05/20 06:52 Body Mass Index 28.8 Const: Other: Constitutional - Awake and Alert, respiratory distress Eyes - PERRLA, EOMI Cardiovascular - S1S2, RRR, No edema Respiratory - Rhonchi, saturation 94 on 4L Gastrointestinal - NT / ND; +BS; No rebound or guarding - No CVA tenderness Extremities - no calf tenderness bilaterally, no swelling Musculoskeletal - Normal inspection, normal ROM Skin - Warm/Dry Neurological - Alert & oriented x3, No focal deficit Psychological - Appropriate affect Results Labs CBC and Chem 7: 10/05/20 07:18 10/05/20 07:18 Labs: Laboratory Results - last 24 hr 10/05/20 10/05/20 10/05/20 07:18 07:18 09:53 MCV 85.2 MCH 27.4 MCHC 32.2 RDW 13.5 Plt Count 251 MPV 10.0 Immature Gran % (Auto) 0.1 Neut % (Auto) 66.9 Lymph % (Auto) 18.3 L [place] % (Auto) 8.2 Eos % (Auto) 5.8 H Baso % (Auto) 0.7 Lymph # (Auto) 1.9 [place] # (Auto) 0.9 Eos # (Auto) 0.6 H Baso # (Auto) 0.1 Abs Immat Gran (auto) 0.01 Absolute Neuts (auto) 7.0 Absolute Nucleated RBC 0.000 Nucleated RBC % (auto) 0.0 O2 Saturation ABG pH at Pt Temp ABG pH (Temp Correct) ABG pCO2 at Pt Temp ABG pCO2 (Temp Corrct ABG pO2 at Pt Temp ABG pO2 (Temp Correct ABG HCO3 ABG Base Excess (Actual) Anion Gap 10 L Estim Creat Clear Calc 119.6 Estimated GFR > 60 Random Glucose 111 Lactic Acid 0.9 Calcium 8.9 Total Bilirubin 0.4 AST 16 D ALT 14 Alkaline Phosphatase 90 Total Protein 6.4 L Albumin 3.9 Urine Color Urine Appearance Urine pH Ur Specific [place] Urine Protein Urine Glucose (UA) Urine Ketones Urine Blood Urine Nitrite Ur Leukocyte Esterase Urine Opiates Screen Ur Barbiturates Screen Ur Phencyclidine Scrn Ur Amphetamines Screen U Benzodiazepines Scrn Urine Cocaine Screen U Marijuana (THC) Screen 10/05/20 10/05/20 10/05/20 09:58 10:04 10:05 MCV MCH MCHC RDW Plt Count MPV Immature Gran % (Auto) Neut % (Auto) Lymph % (Auto) [place] % (Auto) Eos % (Auto) Baso % (Auto) Lymph # (Auto) [place] # (Auto) Eos # (Auto) Baso # (Auto) Abs Immat Gran (auto) Absolute Neuts (auto) Absolute Nucleated RBC Nucleated RBC % (auto) O2 Saturation 94.0 ABG pH at Pt Temp 7.34 L ABG pH (Temp Correct) 7.35 ABG pCO2 at Pt Temp 55 H ABG pCO2 (Temp Corrct 53 H ABG pO2 at Pt Temp 77 L ABG pO2 (Temp Correct 74 L ABG HCO3 29 H ABG Base Excess (Actual) 2.7 Anion Gap Estim Creat Clear Calc Estimated GFR Random Glucose Lactic Acid Calcium Total Bilirubin AST ALT Alkaline Phosphatase Total Protein Albumin Urine Color YELLOW Urine Appearance CLEAR Urine pH 6.0 Ur Specific [place] >= 1.030 H Urine Protein TRACE Urine Glucose (UA) NEG Urine Ketones 5 Urine Blood NEG Urine Nitrite NEG Ur Leukocyte Esterase NEG Urine Opiates Screen POSITIVE H Ur Barbiturates Screen Not Detected Ur Phencyclidine Scrn Not Detected Ur Amphetamines Screen Not Detected U Benzodiazepines Scrn Not Detected Urine Cocaine Screen POSITIVE H U Marijuana (THC) Screen Not Detected Imaging Radiologist's Impressions: Impressions Chest X-Ray 10/05/20 06:51 IMPRESSION: Early infiltration right upper lobe. No parapneumonic effusion. Assessment and Plan (1) Acute respiratory failure with hypoxia and hypercapnia: Status: Acute (2) Heroin use disorder, moderate, dependence: Status: Acute This is a 45 yo M with a PMH of asthma, heroine and crack abuse with dependence Who presented to the hospital with complaints of progressive shortness of breath and wheezing over the last 2 days. His workup is consistent with acute respiratory failure with hypoxia and hypercapnia likely secondary to opiate use as well as asthma. He may also have early pneumonia which will be further evaluated with a CT scan of the chest. 1. Acute respiratory failure with hypoxia and hypercapenia multifactorial continue Oxygen, goal 90% 2. Acute Asthma Exacerbation iv steroids and scheduled + PRN bronchodilators 3. Possible pneumonia, question aspiration CT chest to define this further if major infiltrates, will check ct of the chest 4. Opiate dependence daily 10 bags of heroin - had to be given narcan in the ED, now awake and alert suspect he will withdraw later in the day -- will get addiciton medicine. He states he would like to be on Suboxone (has used it in the past) 5. Mood continue baseline meds once med rec done Full Code DVT pptx, Xarelto 10mg daily Quality Stroke Does the patient have a stroke diagnosis?: No VTE Prior VTE?: No VTE Risk Level:: Medical - moderate - high VTE Device Contraindication: Treatment Not Tolerated VTE Drug Contraindication: N/A - Med Ordered
[2020-10-05 13:47] LABS: COVID-19 Test Negative (Negative)
--- NOTE | 2020-10-05 14:05 | PHA.MEDREC ---
Pharmacy Consult ? Medication Reconciliation Pharmacy has completed the medication reconciliation. There has been no fill history, and confirmed patient is on no medications. Flores Cr, PharmD
[2020-10-05] MEDS: iohexoL 350 MG/ML 100 ML INFUS..BTL 69 ML IV (14:24)
--- NOTE | 2020-10-05 16:00 | MHC.RECOVRN ---
45 year old male presented to [facility] ED, ambulatory, due to increasing SOB over the past 2 days. Pt has asthma and attempted?to use rescue inhaler unsuccessfully. Pt subsequently admitted for tx of acute respiratory failure with hypoxia and hypercapnia. Provider believes this to be secondary to IN opiate use disorder as well as asthma. T/w met with pt in ED16 after Addiction Medicine Consult placed. Pt reports using between 5-10 bundles heroin, IN, as well as crack cocaine, INH, unknown amount, daily x 6 months. Pt currently sleeping, able to wake to voice. Pts , Chela, present. states pt has been on Suboxone in the past with success. She also reports he has been on methadone but doesn't like the way it makes his bones feel. Pt does wish to begin Suboxone when withdrawal begins. Case discussed with Suzanne Robles APRN.?
[2020-10-05] MEDS: Albuterol/Iprat 2.5/0.5MG 3 ML AMPUL.NEB INHALE ×2 (16:13→20:00)
[2020-10-05 16:53] LABS: B Type Natriuretic Peptide 30 pg/mL (<100)
[2020-10-05] MEDS: methylPREDNISolone Sod Succ 40 MG/ML VIAL IVPUSH ×2 (17:35→21:53)
[2020-10-05] MEDS: Rivaroxaban 10 MG TABLET PO (17:35)
[2020-10-05] MEDS: 0.9 % Sodium Chloride Flush 3 ML SYRINGE IVFLUSH ×2 (17:36→21:54)
[2020-10-05] MEDS: Buprenorphine/Naloxone 4/1 mg FILM 1 FILM SUBLINGUAL (21:53)
[2020-10-05] MEDS: guaiFENesin 100 MG/5 ML LIQUID PO (22:52)
[2020-10-06] VITALS (13 sets, daily range): BP systolic 146–168; BP diastolic 65–81; PULSE 60–110; RESP 16–20; TEMP 37.1–37.9; O2SAT 91–95
--- NOTE | 2020-10-06 00:10 | MHC.PIE ---
P.WITHDRAWAL I.PT RESTLESS,,YELLING OUT OCC.STATING I FEEL LIKE SHIT .ANXIOUS.AMB TO BR WITH O2.OBSERVED IN BR TRYING TO USE TICK ERADICATOR.EXPLAINED TO PATIENT NEED TO SURRENDER TICK ERADICATOR.SECURITY AND NURSING PRACTICAL NURSING TEACHER NOTIFIED. NOTIFIED.SECURITY TO FLOOR,OBTAINED TICK ERADICATOR AND CHECKED PT'S POCKETS.NOTHING ELSE FOUND.MD AWARE.ORDER FOR ATIVAN IMG IV GIVEN FOR WITHDRAWAL. E.CONT TO ASSESS.
[2020-10-06] MEDS: LORazepam 2 MG/ML VIAL 1 MG IVPUSH (00:18)
[2020-10-06] MEDS: ondansetron HCL 4 MG/2 ML VIAL IVPUSH ×3 (00:47→18:32)
--- NOTE | 2020-10-06 02:00 | MHC.PIE ---
P.CONTINUES WITH WITHDRAWAL SYMPTOMS I.PT ONLY HAD SHORT EFFECT FROM PREVIOUS ATIVAN IV GIVEN.YELLING OUT HELP ME HELP ,CONTINUES TO BE RESTLESS.DR NEUMANN UPDATED.ORDERS FOR ATARAX AND CLONIDINE PRN GIVEN.PT UPDATED .MED WITH ATARAX 25MG PO AND CLONIDINE 0.1MG PO. E.CONT TO MONITOR
[2020-10-06] MEDS: cloNIDine HCL 0.1 MG TABLET PO ×2 (02:04→08:27)
[2020-10-06] MEDS: hydrOXYzine HCL 25 MG TABLET PO ×2 (02:06→08:27)
--- NOTE | 2020-10-06 03:45 | MHC.PIE ---
P CRACK PIPE FOUND I.USED CRACK PIPE FOUND BY FILM RECORDIST WHILE CHANGING BED LINENS.NURSING FIELD AUDITOR AND SECURITY NOTIFIED.SECURITY UP TO FLOOR TO SEARCH BELONGINGS.DID NOT FIND ANYTHING ELSE,THEY FIGURED HE PROBABLY HAD IT IN HIS UNDERWEAR SINCE BELONGS HAD ALREADY BEEN SEARCHED IN ED. ALSO UPDATED. E.CONT TO MONITOR
[2020-10-06] MEDS: methylPREDNISolone Sod Succ 40 MG/ML VIAL IVPUSH ×3 (06:10→20:50)
[2020-10-06] MEDS: Albuterol/Iprat 2.5/0.5MG 3 ML AMPUL.NEB INHALE (07:21)
[2020-10-06] MEDS: Buprenorphine/Naloxone 4/1 mg FILM 1 FILM SUBLINGUAL ×3 (07:48→16:22)
[2020-10-06] MEDS: 0.9 % Sodium Chloride Flush 3 ML SYRINGE IVFLUSH ×3 (07:50→20:52)
[2020-10-06] MEDS: Rivaroxaban 10 MG TABLET PO (08:27)
[2020-10-06] MEDS: Acetaminophen 325 MG TABLET 650 MG PO (11:24)
[2020-10-06] MEDS: guaiFENesin 100 MG/5 ML LIQUID PO (11:24)
--- NOTE | 2020-10-06 11:36 | P.PNIM_ITS ---
Subjective Subjective Date of Service: 10/06/20 Interval History: seen and examined this AM overnight events reviewed breathing eaiser, but reports withdrawal symptoms -- which are slowly improving after admin of suboxone ROS General - +malaise Cardiovascular - no chest pain Respiratory - sob improving Abdominal- no abdominal pain, nausea, vomiting, diarrhea Physical Exam Vital Signs: Vital Signs: Last Vital Signs Temp 100.2 F 10/06/20 11:11 Pulse 95 10/06/20 11:11 Resp 18 10/06/20 11:11 BP 155/72 H 10/06/20 11:11 Pulse Ox 93 10/06/20 11:11 Oxygen Flow Rate 4 10/05/20 06:52 Body Mass Index 28.8 Const: Other: Constitutional - Awake and Alert, appears unwell, hunched over in bed Eyes - PERRLA, EOMI Cardiovascular - S1S2, RRR, No edema Respiratory - air entry improving, no distress Gastrointestinal - NT / ND; +BS; No rebound or guarding - No CVA tenderness Extremities - no calf tenderness bilaterally, no swelling Musculoskeletal - Normal inspection, normal ROM Skin - Warm/Dry Neurological - Alert & oriented x3, No focal deficit Psychological - Appropriate affect Objective Data Current Medications Generic Name Dose Route Start Last Admin Trade Name Freq PRN Reason Stop Dose Admin Acetaminophen 650 mg 10/05/20 13:54 10/06/20 11:24 Acetaminophen 325 Mg Tablet PO 650 mg Q6H PRN Administration Pain, Mild (Pain Scale 1-3) Albuterol/Ipratropium 3 ml 10/05/20 16:00 10/06/20 11:02 Albuterol/Iprat 2.5/0.5mg 3 Ml Ampul.Neb INHALE Not Given RQ4H WHILE AWAKE SRIRAM Albuterol/Ipratropium 3 ml 10/05/20 13:54 Albuterol/Iprat 2.5/0.5mg 3 Ml Ampul.Neb INHALE RQ4H PRN Shortness of Breath/Wheezing Buprenorphine/Naloxone 1 film 10/05/20 21:30 10/06/20 07:48 Buprenorphine/Naloxone 4/1 Mg Film SUBLINGUAL 1 film DAILY SRIRAM Administration Clonidine HCl 0.1 mg 10/06/20 01:46 10/06/20 08:27 Clonidine Hcl 0.1 Mg Tablet PO 0.1 mg TID PRN Administration withdrawal Protocol Doxycycline Hyclate 100 mg 10/06/20 08:00 10/06/20 08:27 Doxycycline Hyclate 100 Mg Tablet PO 100 mg Q12H SRIRAM Administration Guaifenesin 5 ml 10/05/20 16:59 10/06/20 11:24 Guaifenesin 100 Mg/5 Ml Liquid PO 5 ml Q4H PRN Administration Cough Hydroxyzine HCl 25 mg 10/06/20 01:46 10/06/20 08:27 Hydroxyzine Hcl 25 Mg Tablet PO 25 mg Q6H PRN Administration anxiety/restlessness Methylprednisolone Sodium Succinate 40 mg 10/05/20 13:54 10/06/20 06:10 Methylprednisolone Sod Succ 40 Mg/Ml Vial IVPUSH 40 mg Q8H SRIRAM Administration Ondansetron HCl 4 mg 10/05/20 13:54 10/06/20 07:48 Ondansetron Hcl 4 Mg/2 Ml Vial IVPUSH 4 mg Q8H PRN Administration Nausea and Vomiting Pharmacy Consult 1 each 10/05/20 13:43 Consult Rx Perform Med Rec MISCELLANE ONCE PRN Consult order Rivaroxaban 10 mg 10/05/20 13:54 10/06/20 08:27 Rivaroxaban 10 Mg Tablet PO 10 mg DAILY SRIRAM Administration Sodium Chloride 3 ml 10/05/20 16:00 10/06/20 07:50 0.9 % Sodium Chloride Flush 3 Ml Syringe IVFLUSH 3 ml QSHIFT SRIRAM Administration Labs CBC & Chem 7: 10/05/20 07:18 10/05/20 07:18 Labs: Laboratory Results - last 24 hr 10/05/20 10/05/20 13:20 16:15 B-Natriuretic Peptide 30 COVID-19 ([facility]) Negative COVID-19 Clin Com See Note Quality Stroke Does the patient have a stroke diagnosis?: No VTE Prior VTE?: No VTE Risk Level:: Medical - moderate - high VTE Device Contraindication: Treatment Not Tolerated VTE Drug Contraindication: N/A - Med Ordered Assessment and Plan (1) Acute respiratory failure with hypoxia and hypercapnia: Status: Acute (2) Heroin use disorder, moderate, dependence: Status: Acute Assessment and Plan: This is a 45 yo M with a PMH of asthma, heroine and crack abuse with dependence Who presented to the hospital with complaints of progressive shortness of tremayne th and wheezing over the last 2 days. His workup is consistent with acute respiratory failure with hypoxia and hypercapnia likely secondary to opiate use as well as asthma. He may also have early pneumonia which will be further evaluated with a CT scan of the chest. 1. Acute respiratory failure with hypoxia and hypercapenia improving wean o2 as tolerated 2. Acute Asthma Exacerbation iv steroids and scheduled + PRN bronchodilators 3. Acute bronchitis doxycycline 4. Opiate dependence suboxone addiction med on board 5. Mood doesnt appear to be on any meds chronically Full Code DVT pptx, Xarelto 10mg daily
--- NOTE | 2020-10-06 14:08 | MHC.CM.PN ---
Addendum entered by Gabrielle José 10/06/20 14:11: CM CALLED [facility], PTS PCP IS KHAI CLAY Original Note: CM MET WITH PTS WHO WAS AT BEDSIDE, PT SLEEPING. SHE REPORTS IT IS JUST SHE AND THE PT IN THE HOME AND HE IS INDEPENDENT WITH ALL CARE. SHE REPORTS THE PT DOES HAVE A CANE BUT ONLY USES IT ONCE IN A WHILE. SHE CONFIRMS SHE IS THE HCP, COPY ON FILE. SHE DOES NOT KNOW THE NAME OF THE PTS PCP BUT HE GOES TO THE [facility]. CURRENT DC PLAN IS HOME WITH NO SERVICES TO TRANSPORT
[2020-10-06] MEDS: Nicotine 14 MG PATCH.TD24 TRANSDERMA (16:17)
--- NOTE | 2020-10-06 17:20 | PM.EVENT ---
Event Note Date of Service: 10/06/20 Event Note: Addiction note: Patient with OUD and cocaien use disorder started on suboxone overnight. 4mg overnight and 4mg at 0745. Pt seen around 820am still groaning and restless, sweaty. additional 4mg ordered and given with good effect. Re-assessed later in the day and still comfortable, no withdrawal sx. Plan: -additional 4mg this evening (total of 12mg today) -8mg QD in AM and 4mg in evening moving forward. Order in place.
[2020-10-07 01:22] VITALS: PULSE 58
[2020-10-07 03:09] VITALS: BP 156/85; PULSE 82; RESP 18; TEMP 36.8; O2SAT 93
[2020-10-07] MEDS: methylPREDNISolone Sod Succ 40 MG/ML VIAL IVPUSH (05:56)
[2020-10-07] MEDS: cloNIDine HCL 0.1 MG TABLET PO (05:59)
[2020-10-07 07:25] VITALS: BP 153/78; PULSE 72; RESP 18; TEMP 36.8; O2SAT 96
[2020-10-07] MEDS: 0.9 % Sodium Chloride Flush 3 ML SYRINGE IVFLUSH (08:12)
[2020-10-07] MEDS: Rivaroxaban 10 MG TABLET PO (08:12)
[2020-10-07] MEDS: Nicotine 14 MG PATCH.TD24 TRANSDERMA (08:14)
[2020-10-07] MEDS: Buprenorphine/Naloxone 8/2 mg FILM 1 FILM SUBLINGUAL (08:15)
[2020-10-07] MEDS: ondansetron HCL 4 MG/2 ML VIAL IVPUSH (08:21)
--- NOTE | 2020-10-07 09:33 | MHC.RECOVSUP ---
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 Patient reports he is interested in continuing Suboxone. Informed patient that the [facility] and the [facility] would be able to continue prescribing for him. Patient reports [facility] would be more convenient for him. Patient provided with information on the [facility] Suboxone program. Explained to patient that he will have a prescription sent to his pharmacy of choice that will bridge him until Friday and that he can go as a walk-in on Friday to the clinic. Patient acknowledged and requested his prescription be sent to [facility] on [address] and the [facility]. Patient reports no questions at this time and reports he understands the plan to get his prescription and go as a walk-in on Friday to [facility]. Discussed case with Suzanne Robles NP.
[2020-10-07] MEDS: Albuterol/Iprat 2.5/0.5MG 3 ML AMPUL.NEB INHALE (09:45)
[2020-10-07 10:00] VITALS: PULSE 66
--- NOTE | 2020-10-07 10:23 | P.DS_ITS ---
DS: Providers Provider Date of Service: 10/07/20 <DEBBIE Gutierrez - Last Filed: 10/07/20 10:31> Date of admission: 10/05/20 13:43 <DEBBIE Gutierrez - Last Filed: 10/07/20 10:31> Primary care physician: [facility] <DEBBIE Gutierrez Last Filed: 10/07/20 10:31> Consults: 10/05/20 13:54 Addiction Medicine Routine Consulting Provider: Suzanne Robles Reason for consultation: interested in suboxone <DEBBIE Gutierrez Last Filed: 10/07/20 10:31> DS: Diagnosis Discharge Diagnosis (1) Acute respiratory failure with hypoxia and hypercapnia: Status: Acute <DEBBIE Gutierrez Last Filed: 10/07/20 10:31> (2) Heroin use disorder, moderate, dependence: Status: Acute <DEBBIE Gutierrez Last Filed: 10/07/20 10:31> (3) Asthma exacerbation: Status: Acute <DEBBIE Gutierrez - Last Filed: 10/07/20 10:31> (4) Bronchitis: Status: Acute <DEBBIE Gutierrez - Last Filed: 10/07/20 10:31> DS: Medications Discharge Medications Home Medications: Previous Rx's Medication Instructions Recorded albuterol sulfate [ProAir HFA] 2 puff INHALATION Q6H PRN #6.7 g 10/07/20 buprenorphine-naloxone [Suboxone] 1 film BUCCAL Q24H #5 ea 10/07/20 doxycycline hyclate 100 mg PO Q12H 3 Days #6 tab 10/07/20 prednisone 40 mg PO DAILY 3 Days #6 tab 10/07/20 <DEBBIE Gutierrez - Last Filed: 10/07/20 10:31> DS: Summary Hospital Course Hospital Course: from H and P on day of admission This is a 45-year-old male with a past medical history of asthma only on rescue inhalers, anxiety/depression, polysubstance abuse including daily crack/cocaine smoking and snorting heroin, tobacco use who presents to the hospital with complaints of shortness of breath over the last 2 days prior to arrival. He reports that he tried using his rescue inhaler but it did not help much so he presented to the emergency room. He does endorse daily crack smoking and snorting heroin with last use of his heroin around 04:00 on the day of admission. Besides shortness of breath he endorses wheezing and a nonproductive cough. He denies any fevers or chills. Denies being around anybody with similar symptoms. He reports that he received his more day and a vaccine about 2-3 months ago when he was incarcerated. He denies IV substance abuse. He endorses that he was intubated for asthma in 2006. Patients is bedside, who corroborates the details Upon arrival to the emergency room he was noted to be in respiratory distress with tachypnea and diffuse wheezing. He was treated with bronchodilators, IV magnesium, systemic steroids. His chest x-ray revealed a suprahilar infiltrate. He had cultures drawn and was given empiric IV ceftriaxone and azithromycin. His condition continue to deteriorate, becoming more somnolent. A blood gas was checked which showed a normal pH, however pCO2 was elevated to the mid 50s And his PO2 was in the 70s on 4 L. he was given a small dose of IV Narcan with improvement in his somnolence. He remained with respiratory distress and subsequently admission was requested. Acute respiratory failure. Secondary to acute bronchitis and asthma exacerbation in the setting of polysubstance abuse. initially in the emergency department he appeared somnolence but responded well to a dose of Narcan. patient was admitted to the intermediate care unit and started on antibiotics for treatment of bronchitis. He was started on IV Solu-Medrol for the treatment of acute acute asthma exacerbation. He was weaned off oxygen and has been on room air for 24 hours. Blood cultures have remained negative to date. His breathing and wheezing have improved significantly and he is currently stable for discharge and requesting to return home. He will be discharged to complete course of prednisone and doxycycline. For polysubstance abuse, he was seen in consultation by addiction medicine. He was started on Suboxone. He will be discharged home with Suboxone to bridge him until Friday when he is encouraged to follow up at [facility] (the patient's requested location) for ongoing care. <DEBBIE Gutierrez - Last Filed: 10/07/20 10:31> Time Spent with Patient Time attestation: Total time spent providing and/or coordinating discharge services: <DEBBIE Gutierrez - Last Filed: 10/07/20 10:31> Discharge coordination time: Greater than 30 minutes <DEBBIE Gutierrez - Last Filed: 10/07/20 10:31> Quality: Stroke Does the patient have a stroke diagnosis?: No <DEBBIE Gutierrez - Last Filed: 10/07/20 10:31> Physical Exam Vital Signs: Vital Signs: Last Vital Signs Temp 98.2 F 10/07/20 07:25 Pulse 72 10/07/20 07:25 Resp 18 10/07/20 07:25 BP 153/78 H 10/07/20 07:25 Pulse Ox 96 10/07/20 07:25 Oxygen Flow Rate 4 10/05/20 06:52 Body Mass Index 28.8 <DEBBIE Gutierrez - Last Filed: 10/07/20 10:31> Const: Nutritional Appearance: well nourished <DEBBIE Gutierrez - Last Filed: 10/07/20 10:31> Orientation/consciousness: patient oriented x3 <DEBBIE Gutierrez - Last Filed: 10/07/20 10:31> HENMT: Head: Yes normocephalic and Yes atraumatic <DEBBIE Gutierrez - Last Filed: 10/07/20 10:31> Eyes: Sclerae: sclerae normal <DEBBIE Gutierrez - Last Filed: 10/07/20 10:31> Resp: Effort & Inspection: normal respiratory effort and no respiratory distress <DEBBIE Gutierrez - Last Filed: 10/07/20 10:31> Cardio: Rate: regular rate <DEBBIE Gutierrez - Last Filed: 10/07/20 10:31> Rhythm: regular rhythm <DEBBIE Gutierrez - Last Filed: 10/07/20 10:31> GI: Palpation (GI): Soft to palpation and nontender <DEBBIE Gutierrez - Last Filed: 10/07/20 10:31> Neuro: General: patient oriented x3 <DEBBIE Gutierrez - Last Filed: 10/07/20 10:31> Cranial nerves: Yes CN's II-XII intact bilaterally and Yes Bilaterally intact EOM present <DEBBIE Gutierrez - Last Filed: 10/07/20 10:31> DS: Data Data Completed and Pending Labs on day of discharge: Preliminary micro results at discharge 10/05/20 09:54 Blood Culture - Preliminary Blood - Venous No growth after 24 hours. 10/05/20 09:53 Blood Culture - Preliminary Blood - Venous No growth after 24 hours. <DEBBIE Gutierrez - Last Filed: 10/07/20 10:31> Discharge Plan Discharge Patient Disposition: Home, Self-Care <DEBBIE Gutierrez - Last Filed: 10/07/20 10:31> Discharge Diagnosis: acute respiratory failure with hypoxia and hypercapnia asthma exacerbation <DEBBIE Gutierrez Last Filed: 10/07/20 10:31> acute respiratory failure with hypoxia and hypercapnia asthma exacerbation <Shiv Antunez MD - Last Filed: 10/07/20 10:50> Referrals: [facility] [Primary Care Provider] - 1 Week <DEBBIE Gutierrez - Last Filed: 10/07/20 10:31> Discharge Medications: New buprenorphine-naloxone [Suboxone] 12-3 mg film 1 film buccal Q24H Qty: 5 RF: 0 doxycycline hyclate 100 mg Tablet 100 mg PO Q12H 3 Days Qty: 6 RF: 0 prednisone 20 mg tablet 40 mg PO DAILY 3 Days Qty: 6 RF: 0 albuterol sulfate [ProAir HFA] 90 mcg/actuation HFA aerosol inhaler 2 puff inhalation Q6H PRN (Reason: shortness of breath or wheezing) Qty: 6.7 RF: 0 <DEBBIE Gutierrez Last Filed: 10/07/20 10:31> Discharge Orders: Discharge Order (Routine); Ordered 10/07/20 Ordered By: Mavis Pagan <DEBBIE Gutierrez Last Filed: 10/07/20 10:31> Activity on Discharge: As tolerated <DEBBIE Gutierrez Last Filed: 10/07/20 10:31> As tolerated <Shiv Antunez MD - Last Filed: 10/07/20 10:50> Stand Alone Forms: Patient Portal Discharge page <DEBBIE Gutierrze - Last Filed: 10/07/20 10:31> Care Plan Goals: see below <DEBBIE Gutierrez - Last Filed: 10/07/20 10:31> Health Concerns: polysubstance abuse Asthma exacerbation bronchitis Respiratory failure <DEBBIE Gutierrez - Last Filed: 10/07/20 10:31> Plan of Treatment: please take antibiotics and prednisone to completion Take Suboxone as prescribed and follow-up Friday at the [facility] as discussed Recommend complete abstinence from drugs please call to schedule follow up appointment with your PCP <DEBBIE Gutierrez - Last Filed: 10/07/20 10:31> Assessment: See discharge summary I saw and examined this patient and participated in treatment plan with PA, I agree with managment and disposition and discharge plan as writen in [facility]ary and instruction by DEBBIE, except if otherwise stated. Fang Antunez MD <DEBBIE Gutierrez - Last Filed: 10/07/20 10:31>
--- NOTE | 2020-10-07 10:43 | MHC.CM.PN ---
PT IS CLEARED TO DC HOME TODAY WITH OUTPATIENT FOLLOW UP. TO TRANSPORT
[2020-10-07] MEDS: Naloxone HCl Nasal TAKE HOME 4 MG SPRAY NOSTRILALT (12:18)
[2020-10-07] MEDS: Buprenorphine/Naloxone 4/1 mg FILM 1 FILM SUBLINGUAL (12:18)
== END 2020-10-07 01:25 | disposition home or self-care (01) | DRG 141 ==
LOC: HO.ED 11:05 → HO.IMC 14:22
PROVIDERS: Student in an Organized Health Care Education/Training Program; Admitting Provider Family Medicine; Emergency Provider Emergency Medicine Emergency Medical Services; Visit Provider Internal Medicine
DX: J45.51 Severe persistent asthma with (acute) exacerbation (principal); J96.01 Acute respiratory failure with hypoxia; J96.02 Acute respiratory failure with hypercapnia; J20.9 Acute bronchitis, unspecified; F11.20 Opioid dependence, uncomplicated; F32.9 Major depressive disorder, single episode, unspecified; F17.210 Nicotine dependence, cigarettes, uncomplicated; Z71.6 Tobacco abuse counseling; Z20.822 Contact with and (suspected) exposure to COVID-19; Z79.899 Other long term (current) drug therapy
CPT/HCPCS: 36415; 71045; 71275; 80053; 80307; 81003; 83605; 83880; 85025; 87040; 87635; 93005; 94640; 94644; 99285; J0456; J0696; J2060; J2270; J2405; J2920; J2930; J3475; Q9967